=== PATIENT | male | born 1995 | race Caucasian/White ===

== ENCOUNTER 2016-10-02 18:16 | Emergency (ER) | payer OTHER ==
[2016-10-02] MEDS ORDERED: LIDOCAINE HCL 5% OINT 35 APP/35.44 GM TUBE TOPICAL ONE (18:41)
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
== END 2016-10-02 19:31 | disposition home or self-care (01) ==
LOC: ER 18:16
DX: S61.412A Laceration without foreign body of left hand, initial encounter (principal); S60.511A Abrasion of right hand, initial encounter; S60.512A Abrasion of left hand, initial encounter; S30.811A Abrasion of abdominal wall, initial encounter; V18.0XXA Pedal cycle driver injured in noncollision transport accident in nontraffic accident, initial encounter; Y92.410 Unspecified street and highway as the place of occurrence of the external cause; Y93.55 Activity, bike riding
CPT/HCPCS: 12041; 99283

== ENCOUNTER 2016-10-13 18:25 | Emergency (ER) | payer OTHER ==
--- NOTE | 2016-10-13 18:49 | ER NURSING DOCUMENTATION ---
Nurse's Notes [facility] Name:Deni Downey Age:21 yrs Sex:Male :1995 Arrival Date:10/13/2016 Time:18:25 Bed2 Private MD: Diagnosis:Suture Removal Presentation: 10/13 18:28 Acuity: LEANN 5 mk2 18:46 Presenting complaint: Patient states: suture removal. 2 ED Course: 18:26 Patient arrived in ED. ama 18:28 Yamilex Catalan, RN is Primary Nurse. 2 18:28 Triage completed. mk2 18:35 Gamaliel Pimentel MD is Attending Physician. tn 18:46 Removed sutures from heel of left hand Patient tolerated well. site looked good. Slight 2 redness, pt educated on cleaning and keeping it open to air when not outside getting dirty. Administered Medications: No medications were administered Outcome: 18:48 No charge visit due to suture removal. mk2 18:49 Discharge ordered by . mk2 18:49 Patient left the ED. 2 Signatures: Gamaliel Pimentel MD MD tn Yamilex Catalan, BLANCO RN 2 Nahum Tarango, Reg Reg ama
== END 2016-10-13 18:49 | disposition home or self-care (01) ==
LOC: ER 18:25
DX: Z48.00 Encounter for change or removal of nonsurgical wound dressing (principal); S61.412D Laceration without foreign body of left hand, subsequent encounter